=== PATIENT | female | born 1995 | race Caucasian/White ===

== ENCOUNTER 2016-08-29 10:36 | Emergency (ER) | payer OTHER ==
[~2016-08-29] VITALS: Ht 177.8 cm; Wt 167.8 kg
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
[2016-08-29] MEDS ORDERED: IBUPROFEN800 M1 PO (13:09)
[2016-08-29] MEDS ORDERED: ROBAXIN-750750 M1 PO (13:09)
[2016-08-29 13:14] VITALS: BP 126/84
== END 2016-08-29 13:14 ==
LOC: ERH 10:36
DX: S16.1XXA Strain of muscle, fascia and tendon at neck level, initial encounter (principal); S00.83XA Contusion of other part of head, initial encounter; S09.90XA Unspecified injury of head, initial encounter; V43.52XA Car driver injured in collision with other type car in traffic accident, initial encounter
CPT/HCPCS: 81025